=== PATIENT | male | born 1965 | race Caucasian/White ===

== ENCOUNTER 2019-02-01 06:20 | Emergency (ER) | payer MEDICAID, OTHER ==
[~2019-02-01] VITALS: Ht 160 cm; Wt 100.0 kg
[2019-02-01 06:23] VITALS: Ht 160 cm; Wt 100.0 kg
--- NOTE | 2019-02-01 07:21 | ERD ---
ER Documentation Chief Complaint Chief Complaint FEELS TIRED, CHRONIC ETOH , SEGUN LEG SWELLING, DARK URINE HPI This is a 53-year-old male who presents for evaluation of fatigue and jaundice. Patient reports that he has noted dark urine, and has been feeling generally tired. He has a history of chronic alcohol abuse, and his last drink was yesterday. He denies fever, he denies chest pain or shortness of breath, he denies alcohol abuse. Also states that he has a history of hypertension as noted his blood pressures been elevated. ROS All systems reviewed and are negative except as per history of present illness. PMhx/Soc History of Surgery: No Hx Neurological Disorder: No Hx Respiratory Disorders: No Hx Cardiac Disorders: Yes (HTN?) Hx Psychiatric Problems: No Hx Miscellaneous Medical Probl: No Hx Alcohol Use: Yes (ETOH) Hx Substance Use: No Hx Tobacco Use: No Smoking Status: Never smoker Physical Exam Vitals Vital Signs Date Temp Pulse Resp B/P (MAP) Pulse Ox O2 O2 Flow FiO2 Time Delivery Rate 02/01/19 98.1 99 18 149/85 99 06:23 (106) Physical Exam Const: No acute distress Head: Atraumatic Eyes: Scleral icterus, ENT: Normal External Ears, Nose and Mouth. Neck: Full range of motion. No meningismus. Resp: Clear to auscultation bilaterally Cardio: Regular rate and rhythm, no murmurs Abd: Soft, non tender, non distended, no rebound or guarding. Normal bowel sounds Skin: Warm and dry, jaundice Back: No midline or flank tenderness Ext: No cyanosis, or edema Neur: Awake and alert Psych: Normal Mood and Affect Result Diagram: 02/01/19 0650 02/01/19 0650 Results 24 hrs Laboratory Tests Test 02/01/19 06:50 White Blood Count 5.3 10^3/ul Red Blood Count 2.32 10^6/ul Hemoglobin 9.5 g/dl Hematocrit 25.7 % Mean Corpuscular Volume 110.8 fl Mean Corpuscular Hemoglobin 40.9 pg Mean Corpuscular Hemoglobin Concent 37.0 g/dl Red Cell Distribution Width 18.6 % Platelet Count 91 10^3/UL Mean Platelet Volume 10.9 fl Immature Granulocytes % 0.600 % Neutrophils % 82.0 % Lymphocytes % 11.5 % Monocytes % 5.5 % Eosinophils % 0.2 % Basophils % 0.2 % Nucleated Red Blood Cells % 0.0 /100WBC Immature Granulocytes # 0.030 10^3/ul Neutrophils # 4.4 10^3/ul Lymphocytes # 0.6 10^3/ul Monocytes # 0.3 10^3/ul Eosinophils # 0.0 10^3/ul Basophils # 0.0 10^3/ul Nucleated Red Blood Cells # 0.0 10^3/ul Prothrombin Time 14.5 Sec Prothrombin Time Ratio 1.1 INR International Normalized Ratio 1.12 Sodium Level 138 mmol/L Potassium Level 3.5 mmol/L Chloride Level 99 mmol/L Carbon Dioxide Level 27 mmol/L Anion Gap 12 Blood Urea Nitrogen 9 mg/dl Creatinine 0.64 mg/dl Est Glomerular Filtrat Rate mL/min > 60 mL/min Glucose Level 228 mg/dl Calcium Level 8.3 mg/dl Total Bilirubin 6.2 mg/dl Direct Bilirubin 3.90 mg/dl Indirect Bilirubin 2.3 mg/dl Aspartate Amino Transf (AST/SGOT) 317 IU/L Alanine Aminotransferase (ALT/SGPT) 90 IU/L Alkaline Phosphatase 286 IU/L Troponin I < 0.012 ng/ml B-Type Natriuretic Peptide 123 PG/ML Total Protein 7.5 g/dl Albumin 3.3 g/dl Globulin 4.20 g/dl Albumin/Globulin Ratio 0.78 Lipase 309 U/L Procedures/MDM This is a 53-year-old male who presents for evaluation of jaundice. His history of chronic alcohol use, with his last drink being yesterday. He has a history of chronic alcohol abuse, he presents with his significant of the been encouraging him to stop drinking, he presents without evidence of withdrawal. Mainly wants to come in to get evaluated for jaundice. His LFTs were elevated, as well as his bilirubin consistent with cirrhosis. EKG: Rate/Rhythm: Normal Sinus Rhythm QRS, ST, T-waves: No changes consistent w/ acute ischemia Impression: No evidence of ischemia or arrhythmia 8:31 AM: CT abdomen pelvis shows no acute findings, other than enlarged liver, and extensive discussion with patient, he will follow-up with all of you, for urgent follow-up, he is agreeable plan of care, at discharge he was in no di stress. Departure Diagnosis: Primary Impression: Cirrhosis Hepatic cirrhosis type: unspecified hepatic cirrhosis Ascites presence: unspecified Qualified Codes: K74.60 - Unspecified cirrhosis of liver Condition: Stable DOYLE BARRIGA MD Feb 01, 2019 07:17
[2019-02-01 08:56] VITALS: BP 145/81; PULSE 78; RESP 20
== END 2019-02-01 09:13 | disposition home or self-care (01) ==
LOC: E/R 06:20
DX: K74.60 Unspecified cirrhosis of liver (principal); I10 Essential (primary) hypertension
CPT/HCPCS: 71045; 74176; 80053; 83690; 83880; 84484; 85025; 85610; 93005; Z7502